=== PATIENT | male | born 1965 | race Caucasian/White ===

== ENCOUNTER 2017-07-08 10:48 | Inpatient (IN) | payer MEDICAID ==
[~2017-07-08] VITALS: Ht 188 cm; Wt 81.6 kg
[2017-07-08 11:25] VITALS: BP 104/66
[2017-07-08 12:05] LABS: BASOPHILS % (AUTO) 0.7 % (0.0-2.0); EOSINOPHILS % (AUTO) 0.5 % (0.0-3.0); HEMATOCRIT 45.3 % (42.0-52.0); HEMOGLOBIN 16.1 G/DL (14.2-18.0); MEAN CORPUSCULAR VOLUME 87 FL (80-99); MONOCYTES % (AUTO) 8.7 % (1.0-10.0); NEUTROPHILS % (AUTO) 53.1 % (45.0-75.0); PLATELET COUNT 133 K/UL (150-450); RED BLOOD COUNT 5.23 M/UL (4.70-6.10); RED CELL DISTRIBUTION WIDTH 10.7 % (11.6-14.8); WHITE BLOOD COUNT 3.5 K/UL (4.8-10.8)
[2017-07-08 12:22] LABS: ANION GAP 6 mmol/L (5-15); BLOOD UREA NITROGEN 13 mg/dL (7-18); CARBON DIOXIDE 30 MMOL/L (21-32); CHLORIDE 100 MMOL/L (98-107); POTASSIUM 4.1 MMOL/L (3.5-5.1); SODIUM 136 MMOL/L (136-145)
--- NOTE | 2017-07-08 12:24 | Diagnostic Imaging Report ---
Indication: Chest pain Technique: XRAY Chest 1v Comparison: 01/17/2015 Findings: Heart size and mediastinal contours are within normal limits. There is no focal consolidation, pneumothorax or pleural effusion. Osseous structures demonstrate no acute abnormality. Impression: No radiographic evidence of acute cardiopulmonary disease.
[2017-07-08 12:39] LABS: ALANINE AMINOTRANSFERASE 39 U/L (12-78); ALBUMIN 3.7 G/DL (3.4-5.0); ALKALINE PHOSPHATASE 56 U/L (46-116); ASPARTATE AMINO TRANSFERASE 27 U/L (15-37); BILIRUBIN,TOTAL 0.7 MG/DL (0.2-1.0); CKMB 0.5 NG/ML (0.0-3.6); CREATINE KINASE 81 U/L (26-308)
--- NOTE | 2017-07-08 13:48 | Diagnostic Imaging Report ---
Indication: Trauma pain, nausea, vomiting Technique: CT of the abdomen and pelvis utilizing automated exposure control with intravenous contrast. Venous scanning performed. CT dose: Total DLP 662.98 mGycm; CTDI vol 13.45 mGy Comparison: None Findings: Dependent atelectasis noted in the lung bases. Heart size within normal limits. No pericardial effusion. Liver normal in size and contour. There are at least 3 low attenuation liver lesions with possible peripheral, nodular enhancement suggesting hemangiomas. The largest is in the left lobe and measures 2.5 cm. Smaller lesions in the right lobe measure 1.4 and 1.5 cm. Definitive characterization with multiphase contrast-enhanced liver protocol MRI can be obtained as clinically indicated. Hepatic veins and portal veins appear patent. Gallbladder is normal. No biliary ductal dilatation. Spleen, adrenal glands and pancreas are unremarkable in appearance. A 1.5 cm accessory splenule is noted in the splenic hilum. There is a 5 mm well-circumscribed low-attenuation lesion in the upper pole of the left kidney most likely representing a simple renal cyst. Kidneys otherwise enhance symmetrically. No urinary tract stones or hydronephrosis bilaterally. Bladder is mildly distended but otherwise unremarkable. Prostate is mildly enlarged and heterogeneous. There is no free intraperitoneal air. There is no ascites. There is no bowel obstruction. The appendix is normal. No perienteric inflammatory change. There is copious stool in the colon. There may be mild thickening of some proximal small bowel loops. There is a tiny fat-containing umbilical hernia. Abdominal aorta is normal in caliber. Multiple pelvic phleboliths noted. No pathologically enlarged lymphadenopathy seen. There are degenerative changes of the spine. No acute osseous abnormality appreciated. IMPRESSION: Thickening of some proximal small bowel loops may be reflective enteritis in the appropriate clinical setting. No evidence of bowel obstruction. 3 low-attenuation liver lesions with suggestion of peripheral nodular enhancement which would be characteristic of hepatic hemangiomas as above. More definitive characterization with ultrasound and/or dynamic contrast-enhanced liver protocol MRI recommended on a nonemergent basis. Mild prostatomegaly. Additional findings as above. The CT scanner at [facility] is accredited by the [employer] and the scans are performed using protocols designed to limit radiation exposure to as low as reasonably achievable to attain images of sufficient resolution adequate for diagnostic evaluation.
[2017-07-08 13:53] VITALS: BP 124/83
--- NOTE | 2017-07-08 13:58 | Emergency Room Report ---
History of Present Illness General Chief Complaint: Flu Like Symptoms Source: Patient Present Illness HPI Patient presents with several different complaints Patient reports over the past several days he has not been feeling well On Wednesday he had an episode where he had syncopal episode Patient was going to the restroom He has had a mild cough denies any chest pain Denies any neck pain or photophobia Patient has a specific mid abdominal discomfort and nauseous feeling as well Denies any diarrhea Denies any rash Allergies: Coded Allergies: No Known Allergies (Unverified , 01/25/15) Patient History Past Medical History: see triage record Pertinent Family History: none Reviewed Nursing Documentation: PMH: Agreed, PSxH: Agreed Nursing Documentation-PMH Past Medical History: No Stated History Review of Systems All Other Systems: negative except mentioned in HPI Physical Exam Vital Signs Date Time Temp Pulse Resp B/P (MAP) Pulse Ox O2 Delivery O2 Flow Rate FiO2 07/08/17 11:00 97.9 59 18 130/82 99 Room Air Sp02 EP Interpretation: reviewed, normal General Appearance: well appearing, no apparent distress Head: normocephalic, atraumatic Eyes: bilateral eye PERRL, bilateral eye EOMI ENT: hearing grossly normal, TMs + canals normal, uvula midline, dry mucus membranes Neck: full range of motion, supple, no meningismus, no bony tend Respiratory: lungs clear, normal breath sounds, no rhonchi, no respiratory distress, no retraction, no accessory muscle use Cardiovascular #1: normal peripheral pulses, no edema, no gallop, no JVD, no murmur, bradycardia Gastrointestinal: normal bowel sounds, non tender - However points mid abdominal for the discomfort, soft, no mass, no organomegaly, non-distended, no guarding, no hernia, no pulsatile mass, no rebound Genitourinary: no CVA tenderness Musculoskeletal: normal inspection Neurologic: oriented x3, responsive, cath lab radiology technician III-XII nml as tested, motor strength/ tone normal, sensory intact Psychiatric: mood/affect normal Skin: normal color, no rash, warm/dry, palpation normal Lymphatic: normal inspection, no adenopathy Medical Decision Making Diagnostic Impression: Primary Impression: Syncope Additional Impression: Viral syndrome ER Course Multiple differentials considered including but not limited to cardiac cardiopulmonary Differential for infectious pathology also entertained Patient on a monitor and on the clinical exam is fairly bradycardic patient reported that he has been told he had a slow heart rate and was told it was in the 50s Patient however has been in the low 40 heart rate Initial blood work reveals a mildly low white blood cell count No obvious acute pathology on imaging and patient requires further inpatient care Labs Test 07/08/17 11:39 White Blood Count 3.5 K/UL (4.8-10.8) Red Blood Count 5.23 M/UL (4.70-6.10) Hemoglobin 16.1 G/DL (14.2-18.0) Hematocrit 45.3 % (42.0-52.0) Mean Corpuscular Volume 87 FL (80-99) Mean Corpuscular Hemoglobin 30.8 PG (27.0-31.0) Mean Corpuscular Hemoglobin Concent 35.5 G/DL (32.0-36.0) Red Cell Distribution Width 10.7 % (11.6-14.8) Platelet Count 133 K/UL (150-450) Mean Platelet Volume 9.4 FL (6.5-10.1) Neutrophils (%) (Auto) 53.1 % (45.0-75.0) Lymphocytes (%) (Auto) 37.0 % (20.0-45.0) Monocytes (%) (Auto) 8.7 % (1.0-10.0) Eosinophils (%) (Auto) 0.5 % (0.0-3.0) Basophils (%) (Auto) 0.7 % (0.0-2.0) Sodium Level 136 MMOL/L (136-145) Potassium Level 4.1 MMOL/L (3.5-5.1) Chloride Level 100 MMOL/L (98-107) Carbon Dioxide Level 30 MMOL/L (21-32) Anion Gap 6 mmol/L (5-15) Blood Urea Nitrogen 13 mg/dL (7-18) Creatinine 1.0 MG/DL (0.55-1.30) Estimat Glomerular Filtration Rate > 60 mL/min (>60) Glucose Level 88 MG/DL (74-106) Calcium Level 9.0 MG/DL (8.5-10.1) Total Bilirubin 0.7 MG/DL (0.2-1.0) Aspartate Amino Transf (AST/SGOT) 27 U/L (15-37) Alanine Aminotransferase (ALT/SGPT) 39 U/L (12-78) Alkaline Phosphatase 56 U/L (46-116) Total Creatine Kinase 81 U/L (26-308) Creatine Kinase MB 0.5 NG/ML (0.0-3.6) Creatine Kinase MB Relative Index 0.6 Troponin I 0.000 ng/mL (0.000-0.056) Total Protein 7.3 G/DL (6.4-8.2) Albumin 3.7 G/DL (3.4-5.0) Globulin 3.6 g/dL Albumin/Globulin Ratio 1.0 (1.0-2.7) Lipase 136 U/L (73-393) EKG Diagnostic Results Rate: bradycardiac Rhythm: other ST Segments: other - bradycardia Rhythm Strip Diag. Results EP Interpretation: yes Rate: 45 Rhythm: no PVC's, no ectopy, other - sinus bradycardia Chest X-Ray Diagnostic Results Chest X-Ray Diagnostic Results : Chest X-Ray Ordered: Yes # of Views/Limited/Complete: 1 View Indication: Chest Pain EP Interpretation: Yes Interpretation: no consolidation, no effusion, no pneumothorax, no acute cardiopulmonary disease Impression: No acute disease Electronically Signed by: Marietta Martinez DO CT/MRI/US Diagnostic Results CT/MRI/US Diagnostic Results : Impression CT abdomen pelvisIMPRESSION: Thickening of some proximal small bowel loops may be reflective enteritis in the appropriate clinical setting. No evidence of bowel obstruction. 3 low-attenuation liver lesions with suggestion of peripheral nodular enhancement which would be characteristic of hepatic hemangiomas as above. More definitive characterization with ultrasound and/or dynamic contrast-enhanced liver protocol MRI recommended on a nonemergent basis. Mild prostatomegaly. Additional findings as above. Last Vital Signs Date Time Temp Pulse Resp B/P (MAP) Pulse Ox O2 Delivery O2 Flow Rate FiO2 07/08/17 11:25 55 11 104/66 100 Room Air 07/08/17 11:00 97.9 Status: improved Disposition: ADMITTED INPATIENT Condition: Serious Scripts No Active Prescriptions or Reported Meds Referrals: [facility],REFERRING (PCP) MAREITTA MARTINEZ D.O. Jul 08, 2017 13:57
[2017-07-08] MEDS ORDERED: Morphine Sulfate 2mg/ml Inj IVP PRN (14:45)
[2017-07-08] MEDS ORDERED: Miralax 17gm pkt ORAL PRN (14:45)
[2017-07-08] MEDS ORDERED: Zolpidem 5mg tab ORAL PRN (14:45)
[2017-07-08] MEDS ORDERED: Mylanta II UD 30ml ORAL PRN (14:45)
[2017-07-08] MEDS ORDERED: LORazepam Inj 2mg/ml 1ml IV PRN (14:45)
[2017-07-08 15:10] VITALS: BP 123/69
[2017-07-08 15:27] VITALS: BP 123/69
--- NOTE | 2017-07-08 16:43 | History and Physical ---
History of Present Illness General Date patient seen: Jul 08, 2017 Reason for Hospitalization: Flu Like Symptoms Present Illness HPI The patient is a 52-year-old male who denies any past medical history, denies hypertension and diabetes and high cholesterol, the patient presents to [facility] emergency room with complaint of 2 days of fevers, chills, body aches and pains, coughing, sore throat, and postnasal drip. Patient also complains of a syncopal episode chauncey toccured while he was in the bathroom and a cardiology examination has been requested in the context of bradycardia measured heart rate of 59 beats per minute in the emergency room. Allergies: Coded Allergies: No Known Allergies (Unverified , 01/25/15) Medication History No Active Prescriptions or Reported Meds Patient History Healthcare decision maker N Resuscitation status Full Code Advanced Directive on File Past Medical/Surgical History Past Medical/Surgical History: (1) Viral illness (2) Viral illness (3) Constipation (4) Enteritis (5) Abdominal pain Review of Systems Constitutional: Reports: fever, malaise, weakness Respiratory: Reports: cough Neurological: Reports: syncope Physical Exam General Appearance: no apparent distress Lines, tubes and drains: peripheral HEENT: normocephalic, atraumatic, anicteric, PERRL Neck: non-tender, normal alignment, supple, normal inspection Respiratory/Chest: chest wall non-tender, normal breath sounds, no respiratory distress Breasts: no masses Cardiovascular/Chest: normal peripheral pulses, normal rate, regular rhythm, no JVD Abdomen: normal bowel sounds, non tender, soft, no organomegaly, no mass Genitourinary/Rectal: normal genital exam, normal rectal exam Extremities: normal range of motion, non-tender, normal inspection, no calf tenderness Neurologic: care taker II-XII grossly normal, no motor/sensory deficits Last 24 Hour Vital Signs Date Time Temp Pulse Resp B/P (MAP) Pulse Ox O2 Delivery O2 Flow Rate FiO2 07/08/17 15:27 98.1 50 18 123/69 99 Room Air 07/08/17 15:10 98.1 50 18 123/69 99 Room Air 07/08/17 13:53 98.0 58 17 124/83 100 Room Air 07/08/17 11:25 55 11 104/66 100 Room Air 07/08/17 11:21 55 11 Room Air 07/08/17 11:00 97.9 59 18 130/82 99 Room Air Laboratory Tests Test 07/08/17 11:39 White Blood Count 3.5 K/UL (4.8-10.8) L Red Blood Count 5.23 M/UL (4.70-6.10) Hemoglobin 16.1 G/DL (14.2-18.0) Hematocrit 45.3 % (42.0-52.0) Mean Corpuscular Volume 87 FL (80-99) Mean Corpuscular Hemoglobin 30.8 PG (27.0-31.0) Mean Corpuscular Hemoglobin Concent 35.5 G/DL (32.0-36.0) Red Cell Distribution Width 10.7 % (11.6-14.8) L Platelet Count 133 K/UL (150-450) L Mean Platelet Volume 9.4 FL (6.5-10.1) Neutrophils (%) (Auto) 53.1 % (45.0-75.0) Lymphocytes (%) (Auto) 37.0 % (20.0-45.0) Monocytes (%) (Auto) 8.7 % (1.0-10.0) Eosinophils (%) (Auto) 0.5 % (0.0-3.0) Basophils (%) (Auto) 0.7 % (0.0-2.0) Sodium Level 136 MMOL/L (136-145) Potassium Level 4.1 MMOL/L (3.5-5.1) Chloride Level 100 MMOL/L (98-107) Carbon Dioxide Level 30 MMOL/L (21-32) Anion Gap 6 mmol/L (5-15) Blood Urea Nitrogen 13 mg/dL (7-18) Creatinine 1.0 MG/DL (0.55-1.30) Estimat Glomerular Filtration Rate > 60 mL/min (>60) Glucose Level 88 MG/DL (74-106) Calcium Level 9.0 MG/DL (8.5-10.1) Total Bilirubin 0.7 MG/DL (0.2-1.0) Aspartate Amino Transf (AST/SGOT) 27 U/L (15-37) Alanine Aminotransferase (ALT/SGPT) 39 U/L (12-78) Alkaline Phosphatase 56 U/L (46-116) Total Creatine Kinase 81 U/L (26-308) Creatine Kinase MB 0.5 NG/ML (0.0-3.6) Creatine Kinase MB Relative Index 0.6 Troponin I 0.000 ng/mL (0.000-0.056) Total Protein 7.3 G/DL (6.4-8.2) Albumin 3.7 G/DL (3.4-5.0) Globulin 3.6 g/dL Albumin/Globulin Ratio 1.0 (1.0-2.7) Lipase 136 U/L (73-393) Height (Feet): 6 Height (Inches): 2.00 Weight (Pounds): 180 Medications Current Medications Medications (Trade) Dose Ordered Sig/Crystal Route PRN Reason Start Time Stop Time Status Last Admin Dose Admin Acetaminophen (Tylenol) 650 mg Q4H PRN ORAL fever 07/08/17 14:45 08/07/17 14:44 Al Hydroxide/Mg Hydroxide (Mylanta II) 30 ml Q6H PRN ORAL dyspepsia 07/08/17 14:45 08/07/17 14:44 Dextrose (Dextrose 50%) STAT PRN IV Hypoglycemia 07/08/17 14:45 08/07/17 14:44 Lorazepam (Ativan 2mg/ml 1ml) 0.5 mg Q4H PRN IV For Anxiety 07/08/17 14:45 07/15/17 14:44 Morphine Sulfate (Morphine Sulfate) 1 mg EVERY 4 HOURS PRN IVP For Pain 07/08/17 14:45 07/15/17 14:44 Ondansetron HCl (Zofran) 4 mg Q6H PRN IVP Nausea & Vomiting 07/08/17 14:45 08/07/17 14:44 Polyethylene Glycol (Miralax) 17 gm HSPRN PRN ORAL Constipation 07/08/17 14:45 08/07/17 14:44 Zolpidem Tartrate (Ambien) 5 mg HSPRN PRN ORAL Insomnia 07/08/17 14:45 07/15/17 14:44 Assessment/Plan Status: stable, progressing Assessment/Plan Syncopal episode Viral illness Dehydration Bradycardia PLAN Cardiology consultation requested IV fluid hydration gentle Electrolyte replacement Supportive treatment ZI BUI Jul 08, 2017 16:43
--- NOTE | 2017-07-08 16:58 | GI Initial Consult Note ---
History of Present Illness General Date patient seen: Jul 08, 2017 Time patient seen: 16:48 Reason for Hospitalization: Flu Like Symptoms Referring physician: ZI BUI Reason for Consultation: ABDOMINAL DISCOMFORT Present Illness HPI Patient presents with several different complaints Patient reports over the past several days he has not been feeling well On Wednesday he had an episode where he had syncopal episode Patient was going to the restroom He has had a mild cough denies any chest pain Denies any neck pain or photophobia Patient has a specific mid abdominal discomfort and nauseous feeling as well Denies any diarrhea Denies any rash GI consulted for abdominal discomfort. Pt seen on floor, awake A&Ox4 NAD with no active s/sx of N/V/D. Ambulatory, c/o of epigastric discomfort along with non productive cough. Per patient, he recently suffered from most likely the flu within the past 5 days where he was febrile and an an episode of diarrhea at the time. Currently, the patient is constipated with no BM x3-[address] shows the patient has enteritis. Labs are normal. Patient had colonoscopy x 3 years ago, unremarkable findings. Patient also was an athlete. Denies any unintentional weight loss or changes in dietary habits. Denies ETOH/IVDA/ tobacco use. Home Meds No Active Prescriptions or Reported Meds Med list reviewed/reconciled: Yes Allergies: Coded Allergies: No Known Allergies (Unverified , 01/25/15) Patient History History Provided By: Patient PMH Narrative Past Medical History: see triage record Pertinent Family History: none Reviewed Nursing Documentation: PMH: Agreed, PSxH: Agreed Nursing Documentation-PMH Past Medical History: No Stated History Social History: Denies: smoking, alcohol use, drug use, other Review of Systems All Other Systems: negative except mentioned in HPI Physical Exam Vital Signs Date Time Temp Pulse Resp B/P (MAP) Pulse Ox O2 Delivery O2 Flow Rate FiO2 07/08/17 11:00 97.9 59 18 130/82 99 Room Air Sp02 EP Interpretation: reviewed, normal Labs Laboratory Tests Test 07/08/17 11:39 White Blood Count 3.5 K/UL (4.8-10.8) L Red Blood Count 5.23 M/UL (4.70-6.10) Hemoglobin 16.1 G/DL (14.2-18.0) Hematocrit 45.3 % (42.0-52.0) Mean Corpuscular Volume 87 FL (80-99) Mean Corpuscular Hemoglobin 30.8 PG (27.0-31.0) Mean Corpuscular Hemoglobin Concent 35.5 G/DL (32.0-36.0) Red Cell Distribution Width 10.7 % (11.6-14.8) L Platelet Count 133 K/UL (150-450) L Mean Platelet Volume 9.4 FL (6.5-10.1) Neutrophils (%) (Auto) 53.1 % (45.0-75.0) Lymphocytes (%) (Auto) 37.0 % (20.0-45.0) Monocytes (%) (Auto) 8.7 % (1.0-10.0) Eosinophils (%) (Auto) 0.5 % (0.0-3.0) Basophils (%) (Auto) 0.7 % (0.0-2.0) Sodium Level 136 MMOL/L (136-145) Potassium Level 4.1 MMOL/L (3.5-5.1) Chloride Level 100 MMOL/L (98-107) Carbon Dioxide Level 30 MMOL/L (21-32) Anion Gap 6 mmol/L (5-15) Blood Urea Nitrogen 13 mg/dL (7-18) Creatinine 1.0 MG/DL (0.55-1.30) Estimat Glomerular Filtration Rate > 60 mL/min (>60) Glucose Level 88 MG/DL (74-106) Calcium Level 9.0 MG/DL (8.5-10.1) Total Bilirubin 0.7 MG/DL (0.2-1.0) Aspartate Amino Transf (AST/SGOT) 27 U/L (15-37) Alanine Aminotransferase (ALT/SGPT) 39 U/L (12-78) Alkaline Phosphatase 56 U/L (46-116) Total Creatine Kinase 81 U/L (26-308) Creatine Kinase MB 0.5 NG/ML (0.0-3.6) Creatine Kinase MB Relative Index 0.6 Troponin I 0.000 ng/mL (0.000-0.056) Total Protein 7.3 G/DL (6.4-8.2) Albumin 3.7 G/DL (3.4-5.0) Globulin 3.6 g/dL Albumin/Globulin Ratio 1.0 (1.0-2.7) Lipase 136 U/L (73-393) General Appearance: well appearing, no apparent distress, alert Head: normocephalic EENT: PERRL/EOMI, normal ENT inspection Neck: supple Respiratory: normal breath sounds, no respiratory distress Cardiovascular: normal rate Gastrointestinal: normal inspection, non tender, soft, normal bowel sounds, non -distended Rectal: deferred Genitourinary: deferred Musculoskeletal: normal inspection, back normal Neurologic: normal inspection, alert, oriented x3, responsive Psychiatric: normal inspection, judgement/insight normal, memory normal Skin: normal inspection, normal color, no rash, warm/dry, palpation normal, well hydrated Lymphatic: normal inspection, no adenopathy Current Medications Current Medications Medications (Trade) Dose Ordered Sig/Crystal Route PRN Reason Start Time Stop Time Status Last Admin Dose Admin Acetaminophen (Tylenol) 650 mg Q4H PRN ORAL fever 07/08/17 14:45 08/07/17 14:44 Al Hydroxide/Mg Hydroxide (Mylanta II) 30 ml Q6H PRN ORAL dyspepsia 07/08/17 14:45 08/07/17 14:44 Dextrose (Dextrose 50%) STAT PRN IV Hypoglycemia 07/08/17 14:45 08/07/17 14:44 Lorazepam (Ativan 2mg/ml 1ml) 0.5 mg Q4H PRN IV For Anxiety 07/08/17 14:45 07/15/17 14:44 Morphine Sulfate (Morphine Sulfate) 1 mg EVERY 4 HOURS PRN IVP For Pain 07/08/17 14:45 07/15/17 14:44 Ondansetron HCl (Zofran) 4 mg Q6H PRN IVP Nausea & Vomiting 07/08/17 14:45 08/07/17 14:44 Polyethylene Glycol (Miralax) 17 gm HSPRN PRN ORAL Constipation 07/08/17 14:45 08/07/17 14:44 Zolpidem Tartrate (Ambien) 5 mg HSPRN PRN ORAL Insomnia 07/08/17 14:45 07/15/17 14:44 GI: Plan Problems: (1) Enteritis (2) Constipation (3) Abdominal pain (4) Viral syndrome Plan CT AP reviewed >> enteritis. Hemangiomas symptomatic treatment advance diet GI cocktail prn Phenergan prn bowel regime >> colace + miralax ppi fu labs Discussed with Dr. Savage. Thank you for this patient referral, we will follow. Mireille Garibay N.P. Jul 08, 2017 16:58
[2017-07-08] MEDS ORDERED: Promethazine/DM 6.25mg/5ml ORAL PRN (17:00)
[2017-07-08] MEDS ORDERED: GI Cocktail 120ml ORAL PRN (17:30)
--- NOTE | 2017-07-08 20:06 | Cardiology Progress Note ---
Assessment/Plan Assessment/Plan [id number] Objective Last 24 Hour Vital Signs Date Time Temp Pulse Resp B/P (MAP) Pulse Ox O2 Delivery O2 Flow Rate FiO2 07/08/17 16:00 43 07/08/17 15:27 98.1 50 18 123/69 99 Room Air 07/08/17 15:10 98.1 50 18 123/69 99 Room Air 07/08/17 13:53 98.0 58 17 124/83 100 Room Air 07/08/17 11:25 55 11 104/66 100 Room Air 07/08/17 11:21 55 11 Room Air 07/08/17 11:00 97.9 59 18 130/82 99 Room Air Laboratory Tests Test 07/08/17 11:39 White Blood Count 3.5 K/UL (4.8-10.8) L Red Blood Count 5.23 M/UL (4.70-6.10) Hemoglobin 16.1 G/DL (14.2-18.0) Hematocrit 45.3 % (42.0-52.0) Mean Corpuscular Volume 87 FL (80-99) Mean Corpuscular Hemoglobin 30.8 PG (27.0-31.0) Mean Corpuscular Hemoglobin Concent 35.5 G/DL (32.0-36.0) Red Cell Distribution Width 10.7 % (11.6-14.8) L Platelet Count 133 K/UL (150-450) L Mean Platelet Volume 9.4 FL (6.5-10.1) Neutrophils (%) (Auto) 53.1 % (45.0-75.0) Lymphocytes (%) (Auto) 37.0 % (20.0-45.0) Monocytes (%) (Auto) 8.7 % (1.0-10.0) Eosinophils (%) (Auto) 0.5 % (0.0-3.0) Basophils (%) (Auto) 0.7 % (0.0-2.0) Sodium Level 136 MMOL/L (136-145) Potassium Level 4.1 MMOL/L (3.5-5.1) Chloride Level 100 MMOL/L (98-107) Carbon Dioxide Level 30 MMOL/L (21-32) Anion Gap 6 mmol/L (5-15) Blood Urea Nitrogen 13 mg/dL (7-18) Creatinine 1.0 MG/DL (0.55-1.30) Estimat Glomerular Filtration Rate > 60 mL/min (>60) Glucose Level 88 MG/DL (74-106) Calcium Level 9.0 MG/DL (8.5-10.1) Total Bilirubin 0.7 MG/DL (0.2-1.0) Aspartate Amino Transf (AST/SGOT) 27 U/L (15-37) Alanine Aminotransferase (ALT/SGPT) 39 U/L (12-78) Alkaline Phosphatase 56 U/L (46-116) Total Creatine Kinase 81 U/L (26-308) Creatine Kinase MB 0.5 NG/ML (0.0-3.6) Creatine Kinase MB Relative Index 0.6 Troponin I 0.000 ng/mL (0.000-0.056) Total Protein 7.3 G/DL (6.4-8.2) Albumin 3.7 G/DL (3.4-5.0) Globulin 3.6 g/dL Albumin/Globulin Ratio 1.0 (1.0-2.7) Lipase 136 U/L (73-393) ROBERTO SAAVEDRA Jul 08, 2017 20:06
--- NOTE | 2017-07-09 01:00 | Consultation ---
DATE OF CONSULTATION: 07/08/2017 CARDIAC CONSULTATION CONSULTING PHYSICIAN: Caleb Gordon M.D. REFERRING PHYSICIAN: Marva Prabhakar M.D. REASON FOR REFERRAL: Bradycardia. HISTORY OF PRESENT ILLNESS: This is a 52-year-old gentleman, who has had some upper respiratory infection over the past two days before coming into the hospital with some fevers, chills, body aches and pains, coughing, sore throat, and postnasal drip. On the day of admission, apparently he went to the bathroom to urinate, found himself on the floor. He was brought to the emergency room at [facility] where he was subsequently admitted. The emergency room physician's notation was reviewed. The patient had initial blood pressure of 130/82 with a heart rate of 59 and oxygen saturation of 99%. He did not have any chest pain or pressure. There is no PND. No orthopnea. No palpitations. He does notice that he had some weakness and dizziness more so than usual when he would sit up for the past three days before the admission. He has been admitted to the hospital, was evaluated, and was noted to be bradycardic. Subsequently, he has had some improvement. His bradycardia is not new. He was previously told about this on a prior basis and his heart rate baseline in the 50s . He has had history of prior syncope some 10 years ago, but not since then. PAST MEDICAL HISTORY: Besides what was noted above, is unremarkable. No diabetes. No high blood pressure. No heart attack. No cancer. No stroke. No hepatitis or tuberculosis. No asthma or emphysema. No ulcers or kidney problems, liver problems, thyroid problems, anemia, arthritis, HIV or AIDS, or blood clots. ALLERGIES: He is not allergic to any medications. SOCIAL HISTORY: He does not smoke or drink alcoholic beverages. He was in sales business. REVIEW OF SYSTEMS: GASTROINTESTINAL: He is somewhat nauseated and some abdominal discomfort. No vomiting. No diarrhea. No bloody or black stool. GENITOURINARY: Negative. PULMONARY: Has some cough and congestion. NEUROLOGICAL: Negative. PHYSICAL EXAMINATION: GENERAL: Shows to be a middle-aged gentleman, in no respiratory distress. HEENT: Unremarkable. NECK: Supple. No jugular venous distention. No abdominojugular reflux noted. LUNGS: Clear to auscultation and percussion. CARDIAC: Regular rhythm. Bradycardic. No heaves or thrills. ABDOMEN: Soft and nontender. Positive bowel sounds. EXTREMITIES: There is no clubbing, cyanosis, nor is there any edema. NEUROLOGICAL: He is awake, alert, responsive, and in no apparent respiratory distress. LABORATORY AND DIAGNOSTIC MICHAEL: White count of 3.5, hemoglobin 16.1, and platelet count 133. Sodium is 136, potassium 4.1, chloride 103, bicarbonate 30, BUN of 13, creatinine 1.0, and glucose of 88. Troponins are all negative. He had a chest x-ray that was performed in the emergency room. No radiographic evidence of acute cardiopulmonary processes. He has had a CT scan of his abdomen and pelvis that showed some proximal small bowel loops were reflective of enteritis, prostatomegaly, otherwise no other significant abnormalities. His telemetry strips show sinus bradycardia. No significant pauses. His electrocardiogram shows sinus bradycardia at a rate of 46. No ST-T wave abnormalities. ASSESSMENT AND PLAN: 1. Syncope in the setting of acute viral illness, likely volume repleted. 2. Bradycardia, chronic, not an acute issue. Dr. Prabhakar, this patient was seen in cardiac consultation. He has had significant improvement in the hospital. He has actually been walking around without any difficulties. Bradycardia is sinus. No significant pathological abnormalities of besides the bradycardia is noted. No pauses and no other abnormalities noted. It is likely that he had a viral illness for which he was volume depleted. He is encouraged to drink plenty of fluids and to follow up with his primary care physician for further recommendations. He has already been discharged by yourself and the patient was told to follow up with his primary physician to consider checking his thyroid in the future. Caleb Gordon M.D. DR: Libby JOB#: [id number] CC:
--- NOTE | 2017-07-09 10:06 | Discharge Summary ---
Discharge Summary Hospital Course Date of Admission Jul 08, 2017 at 13:15 Date of Discharge Jul 08, 2017 at 20:00 Admitting Diagnosis SYMPTOMATIC BRADYCARDIA REDDY Puckett is a 52 year old male who was admitted on Jul 08, 2017 at 13:15 for Symptomatic Bradycardia Hospital Course [id number] Discharge Discharge Disposition Patient was discharged to home Discharge Diagnoses: Viji Pablo NP Jul 09, 2017 10:06
--- NOTE | 2017-07-09 16:41 | Cardiology Report ---
APPROVED REPORT EKG Measurement Heart [id number] Sinus bradycardia Otherwise normal ECG
--- NOTE | 2017-07-10 00:15 | Discharge Summary 2 SIG ---
DATE OF ADMISSION: 07/08/2017 DATE OF DISCHARGE: 07/08/2017 CONSULTANTS: 1. Caleb Gordon M.D. 2. Aj Savage M.D. BRIEF HOSPITAL COURSE: The patient is a 52-year-old gentleman who had been having flu-like symptoms for the past several days, had not been feeling well and been having fever, chills, body aches, pains, cough, sore throat, and postnasal drip. On the day of admission, he went to the bathroom to urinate, then he found himself on the floor. He was brought in the emergency room at [facility] where on admission was noted to be bradycardic, heart rate of 59. He had a chest x-ray done that showed no evidence of acute cardiopulmonary process. Blood work did not show any leukocytosis and electrolytes were stable. Troponin was negative. EKG showed sinus bradycardia. CT of the abdomen and pelvis showed thickening of proximal small bowel loops reflective of enteritis. There was no evidence of bowel obstruction. He was admitted to telemetry for evaluation of syncope and flu-like symptoms. He had abdominal discomfort and had been constipated. He was given bowel regimen consisting of Colace and MiraLAX. Diet was advanced. There was no significant abnormalities and bradycardia noted. Likely, he had a viral illness for which he was volume depleted and caused syncopal episode. He was encouraged to increase p.o. intake and to follow up with primary physician. FINAL DIAGNOSES: 1. Syncope in the setting of acute viral illness, likely volume repleted. 2. Bradycardia. 3. Constipation. 4. Enteritis. DISPOSITION: The patient was discharged home. DISCHARGE INSTRUCTIONS: Follow up with PMD in a week. Increase fluid intake. Marva Prabhakar M.D. I have been assigned to dictate discharge summary on this account and I was not involved in the patient's management. Viji Pablo N.P. DR: SASHA JOB#: [id number] CC: TANIA
== END 2017-07-08 20:00 | disposition home or self-care (01) | DRG 723 ==
LOC: EMR 11:40 → 2E 13:15 → EDBEDREQ 13:29
DX: B34.9 Viral infection, unspecified (principal); R00.1 Bradycardia, unspecified; R55 Syncope and collapse; K59.00 Constipation, unspecified; K52.9 Noninfective gastroenteritis and colitis, unspecified; E86.9 Volume depletion, unspecified
CPT/HCPCS: 36415; 71045; 74177; 80053; 82550; 82553; 83690; 84484; 85025; 93005; 99285

== ENCOUNTER 2017-12-09 16:56 | Emergency (ER) | payer MEDICAID ==
[~2017-12-09] VITALS: Ht 172.7 cm; Wt 83.5 kg
[2017-12-09 17:52] VITALS: BP 122/76
[2017-12-09] MEDS ORDERED: BENADRYL25 MG ORAL (18:08)
[2017-12-09] MEDS ORDERED: MEDROL4 M1 PO (18:08)
[2017-12-09] MEDS ORDERED: SIMETHICONE80 MG ORAL (18:08)
[2017-12-09] MEDS ORDERED: PERMETHRIN60 GM TOPIC (18:08)
[2017-12-09] MEDS ORDERED: HYDROCORTISONE28 G2 TP (18:08)
--- NOTE | 2017-12-09 18:09 | Emergency Room Report ---
History of Present Illness General Chief Complaint: Skin Rash/Abscess Source: Patient Present Illness HPI 52-year-old male patient presents ER complaining of rash and bloating. Reports rash started present for several days, reports itchiness. Reports staying at [facility] on cot with blankets that are stored in closet at facility, reports stays with his father, denies contacts with similar symptoms. Reports rash all over back, abdomen, face. Denies rash on hands or soles. Denies fever, chest pain, shortness breath, abdominal pain. Also complains of bloating and excessive passing of gas during this time. Denies recent changes to diet. Denies diarrhea or vomiting. Denies other acute symptoms. Allergies: Coded Allergies: No Known Allergies (Unverified , 01/25/15) Patient History Past Medical History: see triage record Reviewed Nursing Documentation: PMH: Agreed; PSxH: Agreed Nursing Documentation-PM Past Medical History: No Stated History Hx Cardiac Problems: No Hx Cancer: No Hx Gastrointestinal Problems: No Hx Neurological Problems: Yes Hx Dizziness: Yes Hx Syncope: Yes - 07/05/17 Review of Systems All Other Systems: negative except mentioned in HPI Physical Exam Vital Signs Date Time Temp Pulse Resp B/P (MAP) Pulse Ox O2 Delivery O2 Flow Rate FiO2 12/09/17 17:10 99.1 61 16 122/76 98 Room Air 99.1 Sp02 EP Interpretation: reviewed, normal General Appearance: well appearing, no apparent distress, alert, GCS 15, non- toxic Head: normocephalic, atraumatic Eyes: bilateral eye normal inspection, bilateral eye PERRL ENT: hearing grossly normal, normal pharynx, no angioedema, normal voice, uvula midline, moist mucus membranes Neck: full range of motion Respiratory: lungs clear, normal breath sounds, no rhonchi, no respiratory distress, no accessory muscle use, no wheezing, speaking full sentences Cardiovascular #1: regular rate, rhythm, no edema Gastrointestinal: non tender, soft, no mass, non-distended, no guarding, no rebound Musculoskeletal: back normal, digits/nails normal, gait/station normal, normal range of motion, non-tender Neurologic: alert, oriented x3, responsive, motor strength/tone normal, sensory intact Psychiatric: mood/affect normal Skin: other - macular papular eruptuions dispersed over abdomen and pelvis, noted on scalp and face, no active drainage or bleeding, excoriations noted on back, no linear burrows, no vesciles, no blisters, bonita with pressure, no surrounding erythema or edema, no crepitus, no TTP, no central clearing Medical Decision Making PA Attestation Dr. Easley is my supervising Physician whom patient management has been discussed with. Diagnostic Impression: Primary Impression: Rash and other nonspecific skin eruption Additional Impression: Bloating ER Course Pt. presents to the ED c/o rash and flatulence. Ddx considered but are not limited to atopic dermatitis, bug bite, urticaria, allergic reaction. Vital signs: are WNL, pt. is afebrile ER COURSE: reviewed previous imaging and labs. Physical exam benign, no abdominal tenderness to palpation, does not require labs or imaging at this time. We'll provide patient with simethicone for bloating and flatulence. follow-up with PCP and discuss outpatient imaging and referral as needed per initial recommendation following CT abdomen from previous visit. On physical exam, rash appears consistent with bug bites, spares palms and soles , no linear burrows. Due to patient's currently staying in a rehabilitation facility. Will provide permethrin to cover for possible scabies infection, however low suspicion considering no contacts with similar symptoms. Instructed patient to clean and wash all bedding, clothing, towels. Provided with Medrol Dosepak and Benadryl, side effect of drowsiness, do not take prior to drinking, driving, or operating heavy machinery. Apply small amount hydrocortisone cream to areas of worse itching, do not apply all over body, do not itch, apply cool compresses. Do not apply hydrocortisone cream to face. discuss referral to dermatology as needed. Return to ER for new or worsening of symptoms. Contacts at home should be evaluated for similar symptoms. DISCHARGE: -Rx given for Benadryl for pruritis. SE may cause drowsiness. -Rx given for hydrocortisone cream. -Rx provided for Medrol Dosepak -Rx provided for permethrin --Rx provided for simethicone -Patient instructed to apply warm compresses to affected area. At this time pt. is stable for d/c to home. Patient resting comfortably, in no acute distress, nontoxic appearing. Care plan and follow up instructions have been discussed with the patient prior to discharge. Patient provided with printed patient care instructions, and any necessary prescriptions. Patient instructed to follow-up with primary care provider in 3 - 5 days. Patient questions asked and answered. Patient reports understanding and agreement to treatment plan. ER precautions given. Patient instructed to return to ER immediately for any new or worsening of symptoms including but not limited to increasing SOB, persistent fever. - Please note that this Emergency Department Report was dictated using [employer] performance manager technology software, occasionally this can lead to erroneous entry secondary to interpretation by the dictation equipment. Last Vital Signs Date Time Temp Pulse Resp B/P (MAP) Pulse Ox O2 Delivery O2 Flow Rate FiO2 12/09/17 17:52 99.1 61 16 122/76 98 Room Air 99.1 Disposition: HOME, SELF-CARE Condition: Stable Scripts Simethicone* (SIMETHICONE*) 80 Mg Tab.chew 80 MG ORAL Q8H PRN for GAS PAIN, #20 TAB 0 Refills Prov: Benji Vargas 12/09/17 Permethrin* (ELIMITE*) 60 Gm Cream..g. 1 APPLIC TOPIC ONCE, #60 GM 0 Refills Apply cream from head to toe; leave on for 8-14 hours before washing off with water; may reapply in 1 week if live mites appear. Prov: Benji Vargas 12/09/17 Methylprednisolone (MEDROL) 4 Mg Tab.ds.pk 4 MG PO DAILY, #5 PACK Prov: Benji Vargas 12/09/17 Diphenhydramine Hcl* (BENADRYL*) 25 Mg Capsule 25 MG ORAL Q6H PRN for Itching, #30 CAP Prov: Benji Vargas 12/09/17 Hydrocortisone Acetate 1% Onit (HYDROCORTISONE 1% OINT) Y Oint 28 GM TP BID for 7 Days, #28 GM Prov: Benji Vargas 12/09/17 Patient Instructions: Insect Bite, [id number], Intestinal Gas and Gas Pains, Pediatric Additional Instructions: Followup with primary care provider in 3 -5 days. Wash all clothes and bedding. Take medications as directed. Patient questions asked and answered. ER precautions given, patient instructed to return to ER immediately for any new or worsening of symptoms. Benji Vargas Dec 09, 2017 18:09
[2017-12-09 18:28] VITALS: BP 110/71
== END 2017-12-09 18:28 | disposition home or self-care (01) ==
LOC: EMR 17:30
DX: R21 Rash and other nonspecific skin eruption (principal); R14.0 Abdominal distension (gaseous)
CPT/HCPCS: 99284